=== PATIENT | female | born 1965 | race African-American/Black ===

== ENCOUNTER → 2017-02-13 | Outpatient (CLI) | payer BC ==
[~2017-02-13] MED LIST: AMARYL PO; ATROVENT HFA12.9 G1 INH; JANUVIA100 MG PO; LIPITOR40 MG PO; LOSARTAN POTASS25 MG PO; METFORMIN PO; NEURONTIN PO; OMEPRAZOLE20 M2 PO; OMEPRAZOLE40 M1 PO
--- NOTE | ~2017-02-13 | MY11 ---
[facility] A Service of [facility] RADIOLOGY TEXT RESULTS PATIENT: SHELLY GOMEZ LOCATION: [facility] : 69 UNIT #: [id number] AGE: [address]: Rachel Kiser MD SEX: F ORDER DR: [id number] [address] [id number] [facility]. [place], [place] [address] [id number] MR#: [id number] Acc #: [id number] NAME: SHELLY GOMEZ : 1965 SEX: F STUDY DATE/TIME: 02/13/2017 14:14 UNIT: [facility] ROOM: STUDY DESCRIPTION: MY Mammogram Screening [place] Attending Physician: Rachel Kiser M.D. Referring Physician: Rachel Kiser M.D. Ordering Physician: Rachel Kiser M.D. Primary Care Physician: Rachel Kiser M.D. MEDICAL IMAGING REPORT This report is preliminary unless electronic signature is present EXAM Digital screening mammogram with CAD INDICATIONS Routine screening PROCEDURE Bilateral CC and MLO views obtained on a digital mammography unit, FDA-approved CAD device utilized COMPARISON 06/18/2015 FINDINGS Scattered fibroglandular density. No dominant mass or suspicious mass calcification. IMPRESSION Negative screening mammogram. Screen interval 1 year suggested. Patient's over the age of 40 are entered into a reminder system with target due date for the next mammogram. A result letter will be sent to the patient. BIRADS: 1 Negative Dictated by... Williams Sanchez M.D. THIS IS AN ELECTRONICALLY VERIFIED REPORT Williams Sanchez M.D. at 02/23/2017 7:43 AM EED/to [facility] A Service of [facility] RADIOLOGY TEXT RESULTS PATIENT: SHELLY GOMEZ LOCATION: [facility] : 69 UNIT #: [id number] AGE: [address]: Rachel Kiser MD SEX: F ORDER DR: TD: 02/20/2017 15:57 JOB #: [id number] MEDICAL IMAGING REPORT Page 1 of 1 COPY
== END | disposition home or self-care (01) ==
LOC: CWCC 13:58
DX: Z12.31 Encounter for screening mammogram for malignant neoplasm of breast (principal)
CPT/HCPCS: G0202